=== PATIENT | female | born 2000 | race Caucasian/White ===

== ENCOUNTER 2023-01-05 14:11 | Emergency (ER) | payer MEDICAID ==
--- NOTE | 2023-01-05 14:17 | ERPHSYRPT ---
- History of Present Illness Time Seen by Provider: 01/05/23 14:17 Source: patient, family Exam Limitations: no limitations Physician History: This is a 22-year-old white female who is 9 weeks and 6 days and presents with right flank pain, dysuria and urinary frequency. Patient has had no nausea vomiting or diarrhea. She has had no abdominal pain. She is not short of breath and does not have chest pain. Timing/Duration: day(s) (1 to 2 days) Method of Injury: other (No injury) Associated Symptoms: denies symptoms Previous symptoms: no prior history, no recent treatment Allergies/Adverse Reactions: No Known Drug Allergies Allergy (Unverified 01/05/23 14:41) Travel Risk - International Travel Have you traveled outside of the country in past 3 weeks: No - Coronavirus Screening Are you exhibiting any of the following symptoms?: No Close contact with a COVID-19 positive Pt in past 14-21 Days: No - Review of Systems Constitutional: No Symptoms Eyes: No Symptoms Ears, Nose, & Throat: No Symptoms Respiratory: No Symptoms Cardiac: No Symptoms Abdominal/Gastrointestinal: No Symptoms Genitourinary Symptoms: Dysuria, Frequency, Flank Pain (Right side) Musculoskeletal: No Symptoms Skin: No Symptoms Neurological: No Symptoms Psychological: No Symptoms Endocrine: No Symptoms Hematologic/Lymphatic: No Symptoms Immunological/Allergic: No Symptoms All Other Systems: Reviewed and Negative - Past Medical History Pertinent Past Medical History: Yes - Past Surgical History Past Surgical History: Yes - Nursing Vital Signs Nursing Vital Signs: Initial Vital Signs Temperature 96.8 F 01/05/23 14:42 Pulse Rate 85 01/05/23 14:42 Respiratory Rate 18 01/05/23 14:42 Blood Pressure 114/61 01/05/23 14:42 O2 Sat by Pulse Oximetry 99 01/05/23 14:42 Pain Scale Pain Intensity 3 - Physical Exam General Appearance: no apparent distress, alert, anxiety Eye Exam: PERRL/EOMI, eyes nml inspection Ears, Nose, Throat Exam: normal ENT inspection, moist mucous membranes Neck Exam: normal inspection, non-tender, supple, full range of motion Respiratory Exam: airway intact, No chest tenderness, No respiratory distress Gastrointestinal Exam: No tenderness Pelvic Exam: not done Rectal Exam: not done Back Exam: normal inspection, normal range of motion, CVA tenderness (Right), No vertebral tenderness Extremity Exam: normal inspection, normal range of motion, pelvis stable Neurologic Exam: alert, oriented x 3, cooperative, paperhanger and painter II-XII nml as tested, normal mood/affect, nml cerebellar function, nml station & gait, sensation nml Skin Exam: normal color, warm, dry Lymphatic Exam: No adenopathy SpO2 Interpretation: normal O2 Delivery: Room Air - Course Nursing assessment & vital signs reviewed: Yes Ordered Tests: Active Orders 24 hr Category Date Time Status CULTURE,URINE Stat Lab 01/05/23 14:52 Received UA W/RFX UR CULTURE Stat Lab 01/05/23 14:52 Completed Lab/Rad Data: Laboratory Results 01/05/23 Range/Units 14:52 Urine Color Yellow (Yellow) Urine Appearance Cloudy A (Clear) Urine pH 7.0 (4.6-8.0) Ur Specific [place] 1.020 (1.005-1.030) Urine Protein Negative (Negative) Urine Glucose (UA) Negative (Negative) mg/dL Urine Ketones Negative (Negative) Urine Blood Negative (Negative) Urine Nitrite Negative (Negative) Urine Bilirubin Negative (Negative) Urine Urobilinogen 1.0 A (0.2) mg/dL Ur Leukocyte Esterase Large A (Negative) U Hyaline Cast (Auto) NONE SEEN (0-2) /LPF Urine Microscopic RBC 3-5 (0-5) /HPF Urine Microscopic WBC >100 A (0-5) /HPF Ur Epithelial Cells Rare (None Seen) /HPF Urine Bacteria Rare A (None Seen) /HPF Urine Yeast (Budding) Rare A (None Seen) /HPF Urine Culture Reflexed YES (NO) - Progress Progress Note: 01/05/23 16:08 Patient's medical issue is 1 of low complexity. Level of complexity in the work-up performed is based on review of the patient's past medical history, review the patient's medication list, review of the patient's drug allergy list, history present illness and physical findings on examination. Work-up includes urinalysis. No other laboratory or radiographic studies necessary. I reviewed the results of the study. The patient has a urinary tract infection. We will provide the patient with a capsule of Keflex 500 mg now and write for 7 more days 3 times a day of the Keflex 500. Counseled pt/family regarding: lab results, diagnosis, need for follow-up Medical Desision Making - Independent Historian Additional History obtained from: Mother - Diagnostic Testing Diagnostic test were ordered, analyzed, and reviewed by me: Yes - Risk of complications The pt has a mod risk of morbidity or mortality based on: Need for prescription drug management - Departure Departure Disposition: Home Clinical Impression: Urinary tract infection during in first trimester Condition: Stable Critical Care Time: No Referrals: JANNET GOODMAN MD [Primary Care Provider] - Follow up/PCP as directed Additional Instructions: Drink plenty of fluids. Take your antibiotics as prescribed. Follow-up with your tutoring clinician and primary care physician for further evaluation management. Prescriptions: Cephalexin Mh 500 mg [Keflex 500 mg] 500 mg PO TID #21 cap
[2023-01-05 16:00] LABS: Appearance Cloudy (Clear); Bacteria Rare /HPF (None Seen); Bilirubin Negative (Negative); Blood Negative (Negative); Epithelial Cells Rare /HPF (None Seen); Glucose, Urine Negative (Negative); Hyaline Casts NONE SEEN /LPF (0-2); Ketones Negative (Negative); Leukocyte Esterase Large (Negative); Nitrite Negative (Negative); Protein,Urine Dip Negative (Negative); WBC >100 /HPF (0-5)
[2023-01-05 16:02] LABS: ADD URINE CULTURE? YES (NO); Budding Yeast Rare /HPF (None Seen)
[2023-01-05] MEDS ORDERED: KEFLEX 500 MG PO ONE (16:10)
[2023-01-05] MEDS ORDERED: KEFLEX 500 MG ONE (16:12)
[2023-01-05 16:18] VITALS: BP 118/68; PULSE 86; O2SAT 99
== END 2023-01-05 16:17 | disposition home or self-care (01) ==
LOC: ED 14:11
DX: O23.41 Unspecified infection of urinary tract in pregnancy, first trimester (principal); N39.0 Urinary tract infection, site not specified; Z3A.09 9 weeks gestation of pregnancy; R30.0 Dysuria; R35.0 Frequency of micturition; R10.9 Unspecified abdominal pain
CPT/HCPCS: 81001; 87077; 87086; 87186; 99283; A9270-GY

== ENCOUNTER 2023-02-12 11:41 | Emergency (ER) | payer MEDICAID ==
[2023-02-12 12:17] VITALS: RESP 18; TEMP 98.1
--- NOTE | 2023-02-12 12:26 | ERPHSYRPT ---
- History of Present Illness Time Seen by Provider: 02/12/23 12:26 Historian: patient, family Patient Subjective Stated Complaint: PT to er c/o abd pain rates pain a 9/10 constant tight aching pain to entire leg and numbness to toes. pt reports leg pain has been present in both legs though worse in Left this am. PT states she has also had lower abd pain that is constant sharp and tight pain rate 5/10 pt is 15 wks denies any bleeding. pt called Dr Hamlin who requested she come to ER> Triage Nursing Assessment: PT arrive p/w/d resp easy a@ox3 appears mildly di scomfortable. Physician History: This is a 22-year-old white female patient of Dr. Hamlin, derrick helper who states she is approximately 15 weeks . She underwent an OB ultrasound yesterday which, per her report, showed a single viable intrauterine fetus without evidence of ectopic . She presents with suprapubic tenderness and also bilateral lower extremity achiness that goes down both legs into her feet. She ambulates well. She is able to extend and flex her legs without any abnormality or difficulty. She states she just noticed this come on yesterday and she felt it was worse today. Patient denies chest pain. Patient denies shortness of breath. She has not had any nausea vomiting or diarrhea. Timing/Duration: yesterday Abdominal Pain Onset Location: suprapubic Severity of Pain-Max: mild Severity of Pain-Current: mild Modifying Factors: Improves With: nothing Associated Symptoms: No chest pain, No diarrhea, No loss of appetite, No nausea, No shortness of breath, No vomiting Previous symptoms: no prior history Allergies/Adverse Reactions: No Known Drug Allergies Allergy (Unverified 01/05/23 14:41) Hx Tetanus, Diphtheria Vaccination/Date Given: No Immunizations Up to Date: Yes Travel Risk - International Travel Have you traveled outside of the country in past 3 weeks: No - Coronavirus Screening Are you exhibiting any of the following symptoms?: No Close contact with a COVID-19 positive Pt in past 14-21 Days: No - Vaccine Status Have you recieved a Covid-19 vaccination: No - Review of Systems Constitutional: No Symptoms Eyes: No Symptoms Ears, Nose, & Throat: No Symptoms Respiratory: No Symptoms Cardiac: No Symptoms Abdominal/Gastrointestinal: No Symptoms Genitourinary Symptoms: No Symptoms, No Vaginal Bleeding Musculoskeletal: Back Pain Skin: No Symptoms Neurological: No Symptoms Psychological: No Symptoms Endocrine: No Symptoms Hematologic/Lymphatic: No Symptoms Immunological/Allergic: No Symptoms All Other Systems: Reviewed and Negative - Past Medical History Pertinent Past Medical History: No - Past Surgical History Past Surgical History: No - Social History Smoking Status: Smoker, status unknown Exposure to second hand smoke: Yes Drug Use: none Patient Lives Alone: No - Female History Hx Now: Yes Gestational Age: 16 - Nursing Vital Signs Nursing Vital Signs: Initial Vital Signs Temperature 98.1 F 02/12/23 12:14 Pulse Rate 87 02/12/23 12:14 Respiratory Rate 18 02/12/23 12:14 Blood Pressure 142/71 02/12/23 12:14 Pain Scale Pain Intensity 9 - Physical Exam General Appearance: no apparent distress, alert Eye Exam: PERRL/EOMI Ears, Nose, Throat Exam: normal ENT inspection, moist mucous membranes Neck Exam: normal inspection, non-tender, supple, full range of motion Respiratory Exam: normal breath sounds, lungs clear, airway intact, No chest tenderness, No respiratory distress Cardiovascular Exam: regular rate/rhythm, normal heart sounds, normal peripheral pulses Gastrointestinal/Abdomen Exam: soft, normal bowel sounds, No tenderness Pelvic Exam: not done Rectal Exam: not done Back Exam: normal inspection, normal range of motion, No CVA tenderness, No vertebral tenderness Extremity Exam: normal inspection, normal range of motion, pelvis stable Neurologic Exam: alert, oriented x 3, cooperative, rn international II-XII nml as tested, normal mood/affect, nml cerebellar function, nml station & gait, sensation nml Skin Exam: normal color, warm, dry Lymphatic Exam: No adenopathy SpO2 Interpretation: normal O2 Delivery: Room Air - Course Nursing assessment & vital signs reviewed: Yes Ordered Tests: Active Orders 24 hr Category Date Time Status IV Insertion STAT Care 02/12/23 12:26 Active VENOUS BILATERAL EXTREMITY [US] Stat Exams 02/12/23 12:27 Taken AMYLASE Stat Lab 02/12/23 12:40 Completed CBC W DIFF Stat Lab 02/12/23 12:40 Completed CMP Stat Lab 02/12/23 12:40 Completed LIPASE Stat Lab 02/12/23 12:40 Completed UA W/RFX UR CULTURE Stat Lab 02/12/23 12:00 Completed Lab/Rad Data: Laboratory Result Diagrams 02/12/23 12:40 02/12/23 12:40 Laboratory Results 02/12/23 02/12/23 02/12/23 Range/Units 12:40 12:40 12:00 WBC 8.4 (4.0-10.5) x10^3/uL RBC 4.55 (4.1-5.4) x10^6/uL Hgb 12.4 (12.0-16.0) g/dL Hct 37.2 (35-47) % MCV 81.8 (78-100) fL MCH 27.3 (26-32) pg MCHC 33.3 (32-36) g/dL RDW 13.3 (11.5-14.0) % Plt Count 245 (150-450) x10^3/uL MPV 10.1 (7.5-11.0) fL Gran % 76.7 H (36.0-66.0) % Immature Gran % (Auto) 0.5 H (0.00-0.4) % Nucleat RBC Rel Count 0.0 (0.00-0.1) % Eos # (Auto) 0.04 (0-0.5) x10^3/uL Immature Gran # (Auto) 0.04 H (0.00-0.03) x10^3u/L Absolute Lymphs (auto) 1.43 (1.0-4.6) x10^3/uL Absolute Monos (auto) 0.42 (0.0-1.3) x10^3/uL Absolute Nucleated RBC 0.00 (0.00-0.01) x10^3u/L Lymphocytes % 17.1 L (24.0-44.0) % Monocytes % 5.0 (0.0-12.0) % Eosinophils % 0.5 (0.00-5.0) % Basophils % 0.2 (0.0-0.4) % Absolute Granulocytes 6.40 (1.4-6.9) x10^3/uL Basophils # 0.02 (0-0.4) x10^3/uL Sodium 135 L (137-145) mmol/L Potassium 4.1 (3.5-5.1) mmol/L Chloride 106 (98-107) mmol/L Carbon Dioxide 21 L (22-30) mmol/L Anion Gap 11.7 (5-15) MEQ/L BUN 4 L (7-17) mg/dL Creatinine 0.48 L (0.52-1.04) mg/dL Estimated GFR > 60.0 ML/MIN Glucose 95 (74-106) mg/dL Calcium 9.0 (8.4-10.2) mg/dL Total Bilirubin 0.50 (0.2-1.3) mg/dL AST 23 (14-36) U/L ALT 22 (0-35) U/L Alkaline Phosphatase 44 (38-126) U/L Serum Total Protein 6.6 (6.3-8.2) g/dL Albumin 3.7 (3.5-5.0) g/dL Amylase 59 (30-110) U/L Lipase 48 (23-300) U/L Urine Color Yellow (Yellow) Urine Appearance Clear (Clear) Urine pH 6.5 (4.6-8.0) Ur Specific [place] <=1.005 (1.005-1.030) Urine Protein Negative (Negative) Urine Glucose (UA) Negative (Negative) mg/dL Urine Ketones Negative (Negative) Urine Blood Negative (Negative) Urine Nitrite Negative (Negative) Urine Bilirubin Negative (Negative) Urine Urobilinogen 0.2 (0.2) mg/dL Ur Leukocyte Esterase Negative (Negative) U Hyaline Cast (Auto) NONE SEEN (0-2) /LPF Urine Microscopic RBC 0-2 (0-5) /HPF Urine Microscopic WBC 0-2 (0-5) /HPF Ur Epithelial Cells None Seen (None Seen) /HPF Urine Bacteria None Seen (None Seen) /HPF Urine Culture Reflexed NO (NO) - Progress Progress: unchanged Progress Note: 02/12/23 13:03 This patient's medical issue is 1 of moderate complexity. The level of complexity in the workup performed is based on review of the patient's past medical history, review of the results of outside ultrasound that was performed in the derrick helper's office, review of the patient's medication list, review the patient's drug allergy list, history present illness and physical findings on examination. This patient is 15 weeks . We will order CBC, CMP, urinalysis as well as obtaining venous Dopplers of bilateral lower extremities. Her physical findings are not impressive for any acute, emergent abnormality. She had an OB ultrasound just yesterday and I do not feel we need to repeat this study. 02/12/23 13:06 The tissue technologist reported to me that bilateral lower extremity venous Dopplers are negative for any DVT. 02/12/23 13:[address] Hamlin, the patient's derrick helper. I reviewed the patient workup and the results. He thinks it is reasonable to send the patient home. Counseled pt/family regarding: lab results, diagnosis, need for follow-up Medical Desision Making - Diagnostic Testing Diagnostic test were ordered, analyzed, and reviewed by me: Yes - Risk of complications Minimal Risk: Minimal risk of morbidity - Departure Departure Disposition: Home Clinical Impression: Bilateral lower extremity pain Condition: Stable Critical Care Time: No Referrals: JANNET GOODMAN MD [Primary Care Provider] - Follow up/PCP as directed Additional Instructions: Drink plenty of fluids. Use Tylenol 650 mg orally 3-4 times a day for any back or leg pain. Follow-up with your primary care provider and/or your derrick helper for further evaluation management.
[2023-02-12 12:46] LABS: BASOPHIL % 0.2 % (0.0-0.4); Basophil (Absolute #) 0.02 x10^3/uL (0-0.4); Eosinophil % 0.5 % (0.00-5.0); Eosinophil (Absolute #) 0.04 x10^3/uL (0-0.5); Hematocrit 37.2 % (35-47); Hemoglobin 12.4 g/dL (12.0-16.0); IMMATURE GRAN # 0.04 x10^3u/L (0.00-0.03); IMMATURE GRAN % 0.5 % (0.00-0.4); Lymphocyte (Absolute #) 1.43 x10^3/uL (1.0-4.6); Lymphocytes % 17.1 % (24.0-44.0); Mean Cell Volume 81.8 fL (78-100); Mean Corpuscular Hemoglobin 27.3 pg (26-32); Mean Corpuscular Hgb Concent. 33.3 g/dL (32-36); Mean Platelet Volume 10.1 fL (7.5-11.0); Monocyte (Absolute #) 0.42 x10^3/uL (0.0-1.3); Neutrophil % 76.7 % (36.0-66.0); Platelet Count 245 x10^3/uL (150-450); Red Blood Count 4.55 x10^6/uL (4.1-5.4); Red Cell Distribution Width 13.3 % (11.5-14.0); White Blood Count 8.4 x10^3/uL (4.0-10.5)
[2023-02-12 12:53] LABS: Appearance Clear (Clear); Bacteria None Seen /HPF (None Seen); Bilirubin Negative (Negative); Blood Negative (Negative); Epithelial Cells None Seen /HPF (None Seen); Glucose, Urine Negative (Negative); Hyaline Casts NONE SEEN /LPF (0-2); Ketones Negative (Negative); Leukocyte Esterase Negative (Negative); Nitrite Negative (Negative); Ph 6.5 (4.6-8.0); Protein,Urine Dip Negative (Negative); RBC 0-2 /HPF (0-5); Specific Gravity <=1.005 (1.005-1.030); Urobilinogen 0.2 mg/dL (0.2); WBC 0-2 /HPF (0-5)
[2023-02-12 12:56] LABS: ADD URINE CULTURE? NO (NO)
[2023-02-12 13:08] LABS: ALBUMIN 3.7 g/dL (3.5-5.0); ALKALINE PHOSPHATASE 44 U/L (38-126); AMYLASE 59 U/L (30-110); ANION GAP 11.7 MEQ/L (5-15); BLOOD UREA NITROGEN 4 mg/dL (7-17); CHLORIDE 106 mmol/L (98-107); Carbon Dioxide 21 mmol/L (22-30); Creatinine 1 0.48 mg/dL (0.52-1.04); EST GLOMERULAR FILTRATION RATE > 60.0 ML/MIN; Glucose 95 mg/dL (74-106); LIPASE 48 U/L (23-300); Potassium 4.1 mmol/L (3.5-5.1); SGOT/AST 23 U/L (14-36); SGPT/ALT 22 U/L (0-35); SODIUM 135 mmol/L (137-145); Total Protein 6.6 g/dL (6.3-8.2)
[2023-02-12 13:21] VITALS: BP 109/70; PULSE 74; O2SAT 98
--- NOTE | 2023-02-12 13:21 | XRAY ---
Indication: Bilateral lower extremity pain. Two-dimensional sonogram and color Doppler imaging of the major venous vessels of the left and right leg performed. Comparison: None No thrombus seen in examined deep venous vessels of the left and right leg including greater saphenous vein. Veins demonstrate normal compressibility. Venous waveforms are normal with and without augmentation. Impression: Left and right legs negative for DVT.
== END 2023-02-12 13:40 | disposition home or self-care (01) ==
LOC: ED 11:41
DX: M79.604 Pain in right leg (principal); M79.605 Pain in left leg; R10.2 Pelvic and perineal pain; Z33.1 Pregnant state, incidental; Z28.310 Unvaccinated for COVID-19
CPT/HCPCS: 36415; 80053; 81001; 82150; 83690; 85025; 93970; 99282

== ENCOUNTER 2023-03-05 08:02 | Emergency (ER) | payer MEDICAID ==
--- NOTE | 2023-03-05 08:12 | ERPHSYRPT ---
- History of Present Illness Time Seen by Provider: 03/05/23 08:12 Historian: patient, family Exam Limitations: no limitations Physician History: This is a 22-year-old white female patient of Dr. Hamlin (pie bottomer) who is 18 weeks and presents with vomiting with flecks of blood in the vomitus. Patient states that every morning she has gagging when she brushes her teeth. She is currently on Macrodantin to treat a urinary tract infection. Patient has chronic constipation issue. Patient does not have significant abdominal pain at this time. She also complains of some achiness in the anterior left chest without radiation, under the left breast. She is not short of breath. Patient was seen on 02/12/2023 with complaints of abdominal pain and work-up was negative at that time. Patient has no known drug allergies. Timing/Duration: today Activities at Onset: none Quality: aching (Under left breast) Abdominal Pain Onset Location: other (No significant abdominal pain) Severity of Pain-Max: none Severity of Pain-Current: none Modifying Factors: Improves With: vomiting (A couple of episodes this morning and flecks of blood in the vomitus) Previous symptoms: no prior history Allergies/Adverse Reactions: No Known Drug Allergies Allergy (Unverified 01/05/23 14:41) Home Medications: Nitrofurantoin Macro 100 mg [Macrobid 100MG Capsule] 100 mg PO BID 03/05/23 [History] Hx Tetanus, Diphtheria Vaccination/Date Given: No Travel Risk - International Travel Have you traveled outside of the country in past 3 weeks: No - Coronavirus Screening Are you exhibiting any of the following symptoms?: No Close contact with a COVID-19 positive Pt in past 14-21 Days: No - Vaccine Status Have you recieved a Covid-19 vaccination: No - Review of Systems Constitutional: No Symptoms Eyes: No Symptoms Ears, Nose, & Throat: No Symptoms Respiratory: No Symptoms Cardiac: Chest Pain (Left anterior chest without radiation under the left breast) Abdominal/Gastrointestinal: Vomiting (This a.m.) Genitourinary Symptoms: No Symptoms Musculoskeletal: No Symptoms Skin: No Symptoms Neurological: No Symptoms Psychological: No Symptoms Endocrine: No Symptoms Hematologic/Lymphatic: No Symptoms Immunological/Allergic: No Symptoms All Other Systems: Reviewed and Negative - Past Medical History Pertinent Past Medical History: No - Past Surgical History Past Surgical History: No - Social History Smoking Status: Smoker, status unknown Exposure to second hand smoke: Yes Drug Use: none Patient Lives Alone: No - Nursing Vital Signs Nursing Vital Signs: Initial Vital Signs Temperature 98.3 F 03/05/23 08:03 Pulse Rate 88 03/05/23 08:03 Respiratory Rate 16 03/05/23 08:03 Blood Pressure 132/68 03/05/23 08:03 O2 Sat by Pulse Oximetry 98 03/05/23 08:03 Pain Scale Pain Intensity 0 - Physical Exam General Appearance: no apparent distress, alert, anxiety Eye Exam: PERRL/EOMI, eyes nml inspection Ears, Nose, Throat Exam: normal ENT inspection, moist mucous membranes Neck Exam: normal inspection, non-tender, supple, full range of motion Respiratory Exam: normal breath sounds, chest tenderness (Mild achiness under the left breast. Worsens with palpation), lungs clear, airway intact, No respiratory distress Cardiovascular Exam: regular rate/rhythm, normal heart sounds, normal peripheral pulses Gastrointestinal/Abdomen Exam: soft, normal bowel sounds, No tenderness Pelvic Exam: not done Rectal Exam: not done Back Exam: normal inspection, normal range of motion, No CVA tenderness, No vertebral tenderness Extremity Exam: normal inspection, normal range of motion, pelvis stable Neurologic Exam: alert, oriented x 3, cooperative, experimental worker II-XII nml as tested, normal mood/affect, nml cerebellar function, nml station & gait, sensation nml Skin Exam: normal color, warm, dry Lymphatic Exam: No adenopathy SpO2 Interpretation: normal O2 Delivery: Room Air - Course Nursing assessment & vital signs reviewed: Yes EKG Interpreted by Me: RATE (78), Sinus Rhythm, NORMAL AXIS, NORMAL INTERVALS, NORMAL QRS, NORMAL ST-T, Other (No acute ischemic changes on today's twelve-lead EKG.) Ordered Tests: Active Orders 24 hr Category Date Time Status EKG-ER Only STAT Care 03/05/23 08:26 Active IV Insertion STAT Care 03/05/23 08:25 Active AMYLASE Stat Lab 03/05/23 08:45 Received CBC W DIFF Stat Lab 03/05/23 08:45 Completed CMP Stat Lab 03/05/23 08:45 Received CULTURE,URINE Stat Lab 03/05/23 08:46 Received LIPASE Stat Lab 03/05/23 08:45 Received TROPONIN Q4H Lab 03/05/23 12:30 Ordered TROPONIN Q4H Lab 03/05/23 16:30 Ordered UA W/RFX UR CULTURE Stat Lab 03/05/23 08:46 Completed Medication Summary Discontinued Medications Generic Name Dose Route Start Last Admin Trade Name Martell PRN Reason Stop Dose Admin Sodium Chloride 1,000 mls @ 999 mls/hr 03/05/23 08:25 03/05/23 10:12 Sodium Chloride 0.9% 1000 Ml IV 03/05/23 09:25 Infused .Q1H1M STA Infusion Sodium Chloride Confirm 03/05/23 08:34 Sodium Chloride 0.9% 1000 Ml Administered 03/05/23 08:35 Dose 1,000 mls @ ud .ROUTE .STK-MED ONE Ceftriaxone Sodium/Dextrose 1 g in 50 mls @ 100 mls/hr 03/05/23 09:43 10:14 Rocephin 1 Gm-D5w 50 Ml Bag IV 03/05/23 10:12 100 mls/hr STAT STA 100 mls/hr Administration Ceftriaxone Sodium/Dextrose Confirm 03/05/23 10:12 Rocephin 1 Gm-D5w 50 Ml Bag Administered 03/05/23 10:13 Dose 1 g in 50 mls @ ud IV .STK-MED ONE Ondansetron HCl 4 mg 03/05/23 08:25 03/05/23 08:36 Ondansetron Hcl 4 Mg/2 Ml Vial IV 03/05/23 08:26 4 mg STAT ONE Administration Ondansetron HCl Confirm 03/05/23 08:34 Ondansetron Hcl 4 Mg/2 Ml Vial Administered 03/05/23 08:35 Dose 4 mg .ROUTE .STK-MED ONE Lab/Rad Data: Laboratory Result Diagrams 03/05/23 08:45 03/05/23 08:45 Laboratory Results 03/05/23 03/05/23 03/05/23 Range/Units 08:46 08:45 08:45 WBC 8.8 (4.0-10.5) x10^3/uL RBC 4.45 (4.1-5.4) x10^6/uL Hgb 12.2 (12.0-16.0) g/dL Hct 36.3 (35-47) % MCV 81.6 (78-100) fL MCH 27.4 (26-32) pg MCHC 33.6 (32-36) g/dL RDW 12.9 (11.5-14.0) % Plt Count 222 (150-450) x10^3/uL MPV 10.2 (7.5-11.0) fL Gran % 79.6 H (36.0-66.0) % Immature Gran % (Auto) 0.3 (0.00-0.4) % Nucleat RBC Rel Count 0.0 (0.00-0.1) % Eos # (Auto) 0.03 (0-0.5) x10^3/uL Immature Gran # (Auto) 0.03 (0.00-0.03) x10^3u/L Absolute Lymphs (auto) 1.28 (1.0-4.6) x10^3/uL Absolute Monos (auto) 0.43 (0.0-1.3) x10^3/uL Absolute Nucleated RBC 0.00 (0.00-0.01) x10^3u/L Lymphocytes % 14.6 L (24.0-44.0) % Monocytes % 4.9 (0.0-12.0) % Eosinophils % 0.3 (0.00-5.0) % Basophils % 0.3 (0.0-0.4) % Absolute Granulocytes 6.95 H (1.4-6.9) x10^3/uL Basophils # 0.03 (0-0.4) x10^3/uL Sodium Direct 138 (138-146) mmol/L Potassium 3.5 (3.5-4.9) mmol/L Chloride 104 (98-109) mmol/L Carbon Dioxide 21 L (24-29) mmol/L Venous BUN 5 L (8-26) mg/dL Creatinine 0.4 L (0.6-1.3) mg/dL Glucose 128 H (70-105) mg/dL Ionized Calcium 1.33 H (1.12-1.32) mmol/L Troponin 0.00 (0.00-0.03) ng/mL Urine Color Yellow (Yellow) Urine Appearance Turbid A (Clear) Urine pH 7.0 (4.6-8.0) Ur Specific [place] 1.020 (1.005-1.030) Urine Protein Negative (Negative) Urine Glucose (UA) Negative (Negative) mg/dL Urine Ketones Negative (Negative) Urine Blood Negative (Negative) Urine Nitrite Negative (Negative) Urine Bilirubin Negative (Negative) Urine Urobilinogen 1.0 A (0.2) mg/dL Ur Leukocyte Esterase Moderate A (Negative) U Hyaline Cast (Auto) NONE SEEN (0-2) /LPF Urine Microscopic RBC 0-2 (0-5) /HPF Urine Microscopic WBC 6-10 A (0-5) /HPF Ur Epithelial Cells Moderate A (None Seen) /HPF Amorphous Crystals Few A (None Seen) /HPF Urine Bacteria Moderate A (None Seen) /HPF Urine Yeast (Budding) (None Seen) /HPF Urine Culture Reflexed YES (NO) - Progress Progress: improved, re-examined Progress Note: 03/05/23 09:45 This patient's medical issue is 1 of moderate complexity. Level complexity in the work-up performed is based on review of the patient's past medical history, review the patient's medication list, review of the patient's drug allergy list, history of present illness and physical findings on examination. The work-up in this patient includes troponin level, CBC, CMP, urinalysis, twelve-lead EKG. We also infused 1 L of normal saline solution. Patient has a urinary tract infection. We are awaiting the troponin level. The laboratory notified us that the troponin needed to be sent out to a different facility as they are working on the machinery at this time. The remainder of the CMP is also being sent out to another facility. We will provide the patient with 1 g of Rocephin intravenously. Patient will be told to stop her Macrodantin and we will change her antibiotics to Keflex Counseled pt/family regarding: lab results, diagnosis, need for follow-up Medical Desision Making - Diagnostic Testing Diagnostic test were ordered, analyzed, and reviewed by me: Yes - Risk of complications The pt has a mod risk of morbidity or mortality based on: Need for prescription drug management - Departure Departure Disposition: Home Clinical Impression: UTI in Condition: Stable Critical Care Time: No Referrals: JANNET GOODMAN MD [Primary Care Provider] - Follow up/PCP as directed Additional Instructions: Stop your Macrodantin. Drink plenty of fluids. Take your new antibiotics as prescribed. Follow-up with your pie bottomer and primary care provider for further evaluation management. Prescriptions: Ondansetron ODT 4 MG [Zofran Odt 4 mg] 4 mg PO Q6H PRN PRN #10 tablet PRN Reason: Vomiting Cephalexin Mh 500 mg [Keflex 500 mg] 500 mg PO TID #21 cap
[2023-03-05 08:16] VITALS: TEMP 98.3; O2SAT 98
[2023-03-05] MEDS ORDERED: Zofran 4 MG/2 ML VIAL IV ONE (08:25)
[2023-03-05] MEDS ORDERED: Sodium Chloride 0.9% 1000 ML 1,000 ML IV STA (08:25)
[2023-03-05] MEDS ORDERED: Sodium Chloride 0.9% 1000 ML 1,000 ML ONE (08:34)
[2023-03-05] MEDS ORDERED: Zofran 4 MG/2 ML VIAL ONE (08:34)
[2023-03-05 08:50] LABS: Absolute Neutrophil Ct (ANC) 6.95 x10^3/uL (1.4-6.9); BASOPHIL % 0.3 % (0.0-0.4); Basophil (Absolute #) 0.03 x10^3/uL (0-0.4); Eosinophil % 0.3 % (0.00-5.0); Eosinophil (Absolute #) 0.03 x10^3/uL (0-0.5); Hematocrit 36.3 % (35-47); Hemoglobin 12.2 g/dL (12.0-16.0); IMMATURE GRAN # 0.03 x10^3u/L (0.00-0.03); IMMATURE GRAN % 0.3 % (0.00-0.4); Lymphocyte (Absolute #) 1.28 x10^3/uL (1.0-4.6); Lymphocytes % 14.6 % (24.0-44.0); Mean Cell Volume 81.6 fL (78-100); Mean Corpuscular Hemoglobin 27.4 pg (26-32); Mean Corpuscular Hgb Concent. 33.6 g/dL (32-36); Mean Platelet Volume 10.2 fL (7.5-11.0); Monocyte (Absolute #) 0.43 x10^3/uL (0.0-1.3); Monocytes % 4.9 % (0.0-12.0); Neutrophil % 79.6 % (36.0-66.0); Platelet Count 222 x10^3/uL (150-450); Red Blood Count 4.45 x10^6/uL (4.1-5.4); Red Cell Distribution Width 12.9 % (11.5-14.0); White Blood Count 8.8 x10^3/uL (4.0-10.5)
[2023-03-05 09:27] LABS: Appearance Turbid (Clear); Bacteria Moderate /HPF (None Seen); Bilirubin Negative (Negative); Blood Negative (Negative); Epithelial Cells Moderate /HPF (None Seen); Glucose, Urine Negative (Negative); Hyaline Casts NONE SEEN /LPF (0-2); Ketones Negative (Negative); Leukocyte Esterase Moderate (Negative); Nitrite Negative (Negative); Protein,Urine Dip Negative (Negative); RBC 0-2 /HPF (0-5)
[2023-03-05 09:28] LABS: ADD URINE CULTURE? YES (NO); Amourphous Crystal Few /HPF (None Seen)
[2023-03-05 09:34] LABS: ISTAT CREA 0.4 mg/dL (0.6-1.3); ISTAT K 3.5 mmol/L (3.5-4.9); ISTAT iCA 1.33 mmol/L (1.12-1.32)
[2023-03-05] MEDS ORDERED: ROCEPHIN 1 Gm-D5w 50 ml Bag** 1 G/50 ML IVPB IV STA (09:43)
[2023-03-05] MEDS ORDERED: ROCEPHIN 1 Gm-D5w 50 ml Bag** 1 G/50 ML IVPB IV ONE (10:12)
[2023-03-05 10:18] VITALS: BP 110/55
[2023-03-05 10:55] VITALS: PULSE 78; RESP 18
== END 2023-03-05 10:55 | disposition home or self-care (01) ==
LOC: ED 08:02
DX: O23.42 Unspecified infection of urinary tract in pregnancy, second trimester (principal); N39.0 Urinary tract infection, site not specified; Z3A.18 18 weeks gestation of pregnancy; O21.9 Vomiting of pregnancy, unspecified; R07.9 Chest pain, unspecified; Z28.310 Unvaccinated for COVID-19
CPT/HCPCS: 36000; 36415; 80047; 80053; 81001; 82150; 83690; 84484; 85025; 87086; 93005; 96360; 96365; 96374; 99284; J0696; J2405

== ENCOUNTER 2023-05-04 15:04 | Observation (INO) | payer MEDICAID ==
[2023-05-04 15:41] VITALS: BP 120/69; PULSE 97; RESP 18; TEMP 98.8; O2SAT 98
[2023-05-04 15:43] LABS: Hematocrit 33.8 % (35-47); Hemoglobin 10.8 g/dL (12.0-16.0); Mean Cell Volume 82.6 fL (78-100); Mean Corpuscular Hemoglobin 26.4 pg (26-32); Mean Platelet Volume 10.5 fL (7.5-11.0); Platelet Count 228 x10^3/uL (150-450); Red Blood Count 4.09 x10^6/uL (4.1-5.4); Red Cell Distribution Width 13.1 % (11.5-14.0); White Blood Count 10.4 x10^3/uL (4.0-10.5)
[2023-05-04 16:04] LABS: Amphetamine,Urine NEGATIVE (NEGATIVE); Barbiturate,Urine NEGATIVE (NEGATIVE); Benzodiazepine,Urine NEGATIVE (NEGATIVE); Cocaine,Urine NEGATIVE (NEGATIVE); Methadone,Urine NEGATIVE (NEGATIVE); Opiate,Urine NEGATIVE (NEGATIVE); PCP,Urine NEGATIVE (NEGATIVE); THC,Urine NEGATIVE (NEGATIVE)
[2023-05-04 16:11] LABS: Appearance Clear (Clear); Bacteria Moderate /HPF (None Seen); Bilirubin Negative (Negative); Blood Moderate (Negative); Epithelial Cells Rare /HPF (None Seen); Glucose, Urine Negative (Negative); Hyaline Casts NONE SEEN /LPF (0-2); Ketones Negative (Negative); Leukocyte Esterase Negative (Negative); Nitrite Negative (Negative); Ph 6.5 (4.6-8.0); Protein,Urine Dip Negative (Negative); Specific Gravity 1.015 (1.005-1.030); Urobilinogen 0.2 mg/dL (0.2)
[2023-05-04 16:12] LABS: ADD URINE CULTURE? YES (NO)
[2023-05-04 16:17] LABS: ALBUMIN 3.5 g/dL (3.5-5.0); ANION GAP 11.5 MEQ/L (5-15); BILIRUBIN,TOTAL 0.2 mg/dL (0.2-1.3); Creatinine 1 0.41 mg/dL (0.52-1.04); EST GLOMERULAR FILTRATION RATE 142.6 ML/MIN; Potassium 3.8 mmol/L (3.5-5.1); Total Protein 6.4 g/dL (6.3-8.2)
== END 2023-05-04 17:00 | disposition home or self-care (01) ==
LOC: OB 15:04
PROVIDERS: ADMIT Obstetrics & Gynecology; ATTEND Obstetrics & Gynecology
DX: Z34.02 Encounter for supervision of normal first pregnancy, second trimester (principal); Z3A.26 26 weeks gestation of pregnancy
CPT/HCPCS: 36415; 80053; 80307; 81001; 85027; 87086; G0378; G0379

== ENCOUNTER 2023-06-25 10:41 | Observation (INO) | payer MEDICAID ==
[2023-06-25] MEDS ORDERED: Sodium Chloride 0.9% 1000 ML 1,000 ML IV SCH (11:30)
[2023-06-25 18:12] VITALS: BP 94/50; PULSE 85; RESP 18; TEMP 98.6; O2SAT 99
== END 2023-06-25 19:19 | disposition home or self-care (01) ==
LOC: MED SURG 10:41
PROVIDERS: ADMIT Obstetrics & Gynecology; ATTEND Obstetrics & Gynecology
DX: Z34.03 Encounter for supervision of normal first pregnancy, third trimester (principal); Z3A.34 34 weeks gestation of pregnancy
CPT/HCPCS: G0378; G0379

== ENCOUNTER 2023-07-29 08:08 | Inpatient (IN) | payer MEDICAID ==
[2023-07-29] MEDS ORDERED: Zofran 4 MG/2 ML VIAL IV PRN (16:00)
[2023-07-29] MEDS ORDERED: Nubain 10 MG/ML IV PRN (16:00)
--- NOTE | 2023-07-29 16:24 | PCM.HP ---
History of Present Illness - Chief Complaint Chief Complaint: IUP at 39 1/7wks, scheduled IOL History of Present Illness: is a 23 year old female. G1 at 39 1/7wks here for scheduled IOL due to GDMA2, on metformin qAM. Denies bleeding or loss of fluid. Notes good movements. Denies regular ctx. BS control has been good with fastings <90 and 2hpp <120 per pt. Medications & Allergies Home Medications: Home Medication List Acyclovir 200 mg Cap [Acyclovir] 200 mg PO DAILY 06/25/23 [History Confirmed 07/03/23] Metformin HCl 500 mg [Glucophage 500 MG] 500 mg PO DAILY 06/25/23 [History Confirmed 07/03/23] Pnv No.95/Ferrous Fum/Folic AC [ Caplet] 1 mg PO DAILY 06/25/23 [History Confirmed 07/03/23] Allergies/Adverse Reactions: Allergies Allergy/AdvReac Type Severity Reaction Status Date / Time No Known Drug Allergies Allergy Verified 07/03/23 14:47 - Past Medical History Past Medical History: No Neurological History: No Pertinent History ENT History: No Pertinent History Cardiac History: No Pertinent History Respiratory History: No Pertinent History Endocrine Medical History: No Pertinent History Musculoskelatal History: No Pertinent History GI Medical History: No Pertinent History History: No Pertinent History, Other (hx HSV 2021 and Chlamydia 2022) Pyscho-Social History: No Pertinent History Reproductive Disorders: No Pertinent History - Past Surgical History Past Surgical History: No Neuro Surgical History: No Pertinent History Cardiac History: No Pertinent History Respiratory Surgery: No Pertinent History GI Surgical History: No Pertinent History Genitourinary Surgical Hx: No Pertinent History Musculskeletal Surgical Hx: No Pertinent History Female Surgical History: No Pertinent History - Social History Smoking Status: Never smoker How long have you smoked: 3 years Exposure to second hand smoke: Yes Alcohol: None Drug Use: none - Physical Exam General Appearance: no apparent distress Neurologic Exam: alert, cooperative, normal mood/affect Eye Exam: eyes nml inspection Ears, Nose, Throat Exam: moist mucous membranes Neck Exam: normal inspection Respiratory Exam: No respiratory distress Cardiovascular Exam: regular rate/rhythm, No edema Gastrointestinal/Abdomen Exam: soft, No tenderness, No distention Pelvic Exam: normal external exam, No cervical motion tenderness, No vaginal bleeding Extremity Exam: normal inspection, No calf tenderness Skin Exam: normal color, warm, dry Assessment/Plan (1) Gestational diabetes mellitus (GDM) controlled on oral hypoglycemic drug Current Visit: Yes Status: Acute Qualifiers: Trimester: third trimester Qualified Code(s): O24.415 - Gestational diabetes mellitus in , controlled by oral hypoglycemic drugs Assessment & Plan: Admit for IOL with transcervical cook catheter, placed by myself with 80ml in uterine balloon. otherwise complicated by hx chlamydia and HSV (not on prescribed valtrex due to pharmacy not releasing it) with no lesions or prodrome currently and no recent outbreak. GDMA2: took her metformin this morning, so will give light/low carb dinner and then sugar free CLD only with BS q4h until active labor, then q2h during active labor, q1h during pushing and RN to call me for BS <80 or >120. GBS negative. Continuous uterofetal monitoring. May have epidural if/when desired. EFW 3380g. Code(s): O24.415 - GESTATNL DIABETES IN PREG, CTRL BY ORAL HYPOGLYCEMIC DRUGS
[2023-07-29 17:14] LABS: Absolute Neutrophil Ct (ANC) 8.57 x10^3/uL (1.4-6.9); BASOPHIL % 0.2 % (0.0-0.4); Basophil (Absolute #) 0.02 x10^3/uL (0-0.4); Eosinophil % 0.3 % (0.00-5.0); Eosinophil (Absolute #) 0.03 x10^3/uL (0-0.5); Hematocrit 33.2 % (35-47); Hemoglobin 10.4 g/dL (12.0-16.0); IMMATURE GRAN # 0.05 x10^3u/L (0.00-0.03); IMMATURE GRAN % 0.5 % (0.00-0.4); Lymphocyte (Absolute #) 1.55 x10^3/uL (1.0-4.6); Lymphocytes % 14.1 % (24.0-44.0); Mean Cell Volume 77.2 fL (78-100); Mean Corpuscular Hemoglobin 24.2 pg (26-32); Mean Corpuscular Hgb Concent. 31.3 g/dL (32-36); Mean Platelet Volume 10.9 fL (7.5-11.0); Monocyte (Absolute #) 0.81 x10^3/uL (0.0-1.3); Monocytes % 7.3 % (0.0-12.0); Neutrophil % 77.6 % (36.0-66.0); Platelet Count 234 x10^3/uL (150-450); Red Cell Distribution Width 14.5 % (11.5-14.0)
[2023-07-29 18:01] LABS: ABO TYPING A; Antibody Screen NEGATIVE (NEGATIVE); RH TYPING POSITIVE
[2023-07-29 18:08] LABS: Amphetamine,Urine NEGATIVE (NEGATIVE); Barbiturate,Urine NEGATIVE (NEGATIVE); Benzodiazepine,Urine NEGATIVE (NEGATIVE); Cocaine,Urine NEGATIVE (NEGATIVE); Methadone,Urine NEGATIVE (NEGATIVE); Opiate,Urine NEGATIVE (NEGATIVE); PCP,Urine NEGATIVE (NEGATIVE); THC,Urine NEGATIVE (NEGATIVE)
[2023-07-29] MEDS: TYLENOL EXTRA STRENGTH 500 MG PO PRN (20:01)
[2023-07-29] MEDS: STADOL 2 MG IV PRN (20:36)
[2023-07-30] MEDS ORDERED: Lactated Ringers 1,000 ML IV ONE ×2 (03:36→06:00)
[2023-07-30] MEDS: Lactated Ringers 1,000 ML IV SCH ×2 (03:39→05:57)
[2023-07-30] MEDS: STADOL 2 MG IV PRN (04:29)
[2023-07-30] MEDS ORDERED: FENTANYL 2 MCG-BUPIV 0.125%-NS 250 ML Epidur 250 ML EPIDURAL SCH (06:00)
[2023-07-30] MEDS ORDERED: PITOCIN 30 UNITS/ LR 500 ML 30 UNITS/500 ML PLAST..BAG IV SCH ×2 (06:00→12:00)
[2023-07-30] MEDS ORDERED: BRETHINE 1 MG/ML SQ PRN (06:00)
[2023-07-30] MEDS ORDERED: Ephedrine Sulfate 50 MG/ML IV PRN (06:00)
[2023-07-30] MEDS ORDERED: XYLOCAINE 1% HCL 20 ML MDV ONE (07:48)
[2023-07-30] MEDS ORDERED: Dextrose 5%-Lr IV Solution 1000 ML 1,000 ML IV SCH ×3 (08:30→13:11)
[2023-07-30] MEDS ORDERED: Dermoplast Spray TP PRN (12:00)
[2023-07-30] MEDS ORDERED: TYLENOL EXTRA STRENGTH 500 MG PO PRN (12:00)
[2023-07-30] MEDS ORDERED: Mylicon 80MG PO PRN (12:00)
[2023-07-30] MEDS ORDERED: CORTISONE 1% CREAM TP PRN (12:00)
[2023-07-30] MEDS ORDERED: TUCKS TP PRN (12:00)
[2023-07-30] MEDS ORDERED: XYLOCAINE 1% HCL 20 ML MDV IJ PRN (12:00)
[2023-07-30] MEDS ORDERED: LANSINOH 40 GM TOP PRN (12:00)
--- NOTE | 2023-07-30 14:52 | PCM.NOTE ---
Called to evaluate strip for concern for possible late decels. Note normal baseline, +accels, moderate avariability present, and early decelerations. Strip reviewed with team back to around 1400 and no late decels noted. Pit had been stopped then resumed and will go down from 8 to 6 milliunits/min. Last SVE with further descent relative to prior checks. BS 78; will increase D5LR to 150ml/hour. MVUs adequate. Anticipate .
--- NOTE | 2023-07-30 15:51 | PCM.NOTE ---
Review of strip now has some decels appearing to be late in position, so will stop pitocin for 20 minutes and if decels resolve, may resume after that. Moderate variability remains present ruling out acidosis. Will follow closely and continue to intervene as indicated. Still anticipating .
--- NOTE | 2023-07-30 17:33 | PCM.NOTE ---
Pt now complete with anterior lip reduced which stayed up with pushing on 2 contractions. +2 station with pushing. status category I; normal baseline, +accels, moderate variability present, no decels. Will start pushing and take alston out once making good progress. Anticipate .
--- NOTE | 2023-07-30 18:44 | PCM.NOTE ---
Delivery note: To room for pt complete and pushing, nearing delivery. Position TIFFANIE. Glover had been removed. Delivered vigorous female by at 1820 with right shoulder anterior and loose nuchal cord x1. Delayed cord clamping done and vigorous placed onto maternal abdomen. APGARs 7 and 8. Pitocin added to IVF bolus. Cord blood collected. Intact placenta with 3VC delivered spontaneously at 1823. Cervix, vagina, and perineum explored and intact except for 2nd degree lac which was repaired with 3-0 Vicryl in a standard fashion. Rectal exam intact. QBL 100ml. Counts correct. Pt and recovering in room in good condition.
[2023-07-30] MEDS: TYLENOL EXTRA STRENGTH 500 MG PO PRN (22:00)
[2023-07-30] MEDS: MOTRIN 400 MG PO PRN (22:00)
[2023-07-31] MEDS: MOTRIN 400 MG PO PRN (03:54)
[2023-07-31 04:45] LABS: Absolute Neutrophil Ct (ANC) 11.85 x10^3/uL (1.4-6.9); BASOPHIL % 0.2 % (0.0-0.4); Basophil (Absolute #) 0.03 x10^3/uL (0-0.4); Eosinophil % 0.3 % (0.00-5.0); Eosinophil (Absolute #) 0.05 x10^3/uL (0-0.5); Hematocrit 29.7 % (35-47); Hemoglobin 9.3 g/dL (12.0-16.0); IMMATURE GRAN # 0.06 x10^3u/L (0.00-0.03); IMMATURE GRAN % 0.4 % (0.00-0.4); Lymphocyte (Absolute #) 1.97 x10^3/uL (1.0-4.6); Mean Cell Volume 77.5 fL (78-100); Mean Corpuscular Hemoglobin 24.3 pg (26-32); Mean Corpuscular Hgb Concent. 31.3 g/dL (32-36); Mean Platelet Volume 11.1 fL (7.5-11.0); Monocyte (Absolute #) 1.18 x10^3/uL (0.0-1.3); Monocytes % 7.8 % (0.0-12.0); Neutrophil % 78.3 % (36.0-66.0); Platelet Count 181 x10^3/uL (150-450); Red Blood Count 3.83 x10^6/uL (4.1-5.4); Red Cell Distribution Width 14.8 % (11.5-14.0); White Blood Count 15.1 x10^3/uL (4.0-10.5)
[2023-07-31] MEDS ORDERED: Dulcolax 10 MG SUPP PR PRN (09:00)
[2023-07-31] MEDS ORDERED: Adacel Vial IM ONE (10:00)
[2023-07-31] MEDS ORDERED: FERREX 150 PO SCH (10:00)
[2023-07-31] MEDS: Docusate Sodium 100 MG PO SCH (10:57)
[2023-08-01] MEDS: Docusate Sodium 100 MG PO SCH (01:31)
[2023-08-01 09:56] VITALS: PULSE 79; RESP 18
--- NOTE | 2023-08-01 10:04 | PCM.DS ---
Discharge Summary Date of Admission: 07/30/23 08:08 Date of Discharge: 08/01/2023 Admitting Physician: EMILIANO CASTANEDA MD Consults: Consults on Case 07/30/23 06:00 Notify Anesthesia Provider PRN Primary Care Provider: JANNET GOODMAN Allergies Allergies No Known Drug Allergies Allergy (Verified 07/03/23 14:47) Hospital Summary - Hospital Course Hospital Course: Admitted for IOL due to GDMA2. Initiated with transcervical cook catheter overnight which extruded and epidural placed; AROM thereafter performed. Pitocin augmentation added. Progressed to complete and delivered vigorous female by Melissa PATEL. , did well. Fasting glucose the morning after delivery was normal, so recommended to stop her metformin and do 6 week DM screen. Ambulated and urinated without difficulty. Tolerated regular diet. Lochia normal. with support. Discharged to home in good condition after review of meds, precautions, and followup. - Vitals & Intake/Output Vital Signs: Vital Signs Temperature 98.0 F 08/01/23 09:00 Pulse Rate 79 08/01/23 09:00 Respiratory Rate 18 08/01/23 09:00 Blood Pressure 112/56 08/01/23 09:00 O2 Sat by Pulse Oximetry 98 08/01/23 09:00 Intake & Output: Intake & Output 07/29/23 07/30/23 07/31/23 08/01/23 11:59 11:59 11:59 11:59 Intake Total 2075 1105 Output Total 20 1500 Balance 5 -395 Weight 86.636 kg - Lab Result Diagrams: 07/31/23 04:43 Micro Results-Entire Visit: Microbiology 07/30/23 09:06 Urine Culture - Final Catherized NO GROWTH - Procedures and Test Procedures and Tests throughout Hospitalization: Therapy Orders & Screens 07/31/23 00:27 Standby ROUTINE Comment: Diagnosis: IUP at 39 1/7wks, scheduled IOL Final Diagnosis/Problem List - Final Discharge Diagnosis/Problem (1) Gestational diabetes mellitus (GDM) controlled on oral hypoglycemic drug Current Visit: Yes Status: Acute Code(s): O24.415 - GESTATNL DIABETES IN PREG, CTRL BY ORAL HYPOGLYCEMIC DRUGS - Discharge Discharge Date: 08/01/23 Disposition: Home, Self-Care Condition: Good Prescriptions: New Docusate Sodium 100 mg [Docusate Sodium 100 MG] 100 mg PO BID cap Iron Polysaccharides Complex [Ferrex 150] 150 mg PO DAILY cap Ibuprofen [IBUPROFEN 400 MG TABLET] 2 tablet PO Q8H PRN PRN #60 tablet PRN Reason: Pain Lanolin 40 gm [Lansinoh 40 gm] See Rx Instructions .ROUTE .COMPLEX PRN PRN Reason: Pain Acetaminophen 500 mg [Tylenol Extra Strength 500 mg] 1,000 mg PO Q4H PRN PRN tablet PRN Reason: HEADACHE/MILD PAIN/ FEVER Continue Pnv No.95/Ferrous Fum/Folic AC [ Caplet] 1 mg PO DAILY Discontinued Metformin HCl 500 mg [Glucophage 500 MG] 500 mg PO DAILY Additional Instructions: plan for 2 week visit and 6 week visit with diabetes screen Follow up with: JANNET GOODMAN MD [Primary Care Provider] -
[2023-08-01 17:00] VITALS: BP 129/81; TEMP 98.4; O2SAT 97
== END 2023-08-01 17:40 | disposition home or self-care (01) | DRG 807 ==
LOC: OB 08:08 → OBSVTOIN 07-30 08:08
PROVIDERS: ADMIT Obstetrics & Gynecology; ATTEND Obstetrics & Gynecology
PROC: 10E0XZZ Delivery of Products of Conception, External Approach (ICD-10-PCS; principal; 2023-07-30)
PROC: 0KQM0ZZ Repair Perineum Muscle, Open Approach (ICD-10-PCS; 2023-07-30)
DX: O24.415 Gestational diabetes mellitus in pregnancy, controlled by oral hypoglycemic drugs (principal); Z37.0 Single live birth; O70.1 Second degree perineal laceration during delivery; O69.81X0 Labor and delivery complicated by cord around neck, without compression, not applicable or unspecified; Z3A.39 39 weeks gestation of pregnancy; Z20.828 Contact with and (suspected) exposure to other viral communicable diseases
CPT/HCPCS: 36415; 80307; 82947; 85025; 86850; 86900; 86901; 87086; 90715; 94799; 96372; G0378; G0379; J0595; J2590; A9270-GY